=== PATIENT | male | born 1980 | race Hispanic/Latino ===

== ENCOUNTER 2018-06-27 15:30 | Outpatient (CLI) | payer BC ==
--- NOTE | 2018-06-27 17:53 | RAD ---
CHEST TWO VIEWS: 06/27/18 HISTORY: Nonspecific reaction to Janiya interferon. FINDINGS: Normal cardiac silhouette. The lungs and pleural spaces are clear. No pneumothorax or osseous abnorma lities. IMPRESSION: No acute cardiopulmonary process. POS: [facility]
== END 2018-06-27 15:31 | disposition home or self-care (01) ==
LOC: BICRAD 15:30
PROVIDERS: ATTEND Internal Medicine Rheumatology
DX: R76.12 Nonspecific reaction to cell mediated immunity measurement of gamma interferon antigen response without active tuberculosis (principal)
CPT/HCPCS: 71046

== ENCOUNTER 2019-03-07 10:11 | Outpatient (CLI) | payer BC ==
--- NOTE | 2019-03-07 16:02 | MRI ---
MRI RIGHT KNEE 03/07/19 PROVIDED CLINICAL HISTORY: Right knee pain and popping. FINDINGS: Evaluation is limited by patient motion. The anterior cruciate ligament, posterior cruciate ligament, medial collateral ligament and lateral c ollateral ligamentous complex demonstrate an intact MR appearance, as does the extensor mechanism. The medial and lateral menisci demonstrate no definite evidence for tear. No focal articular cartilage defect is apparent. There is a mild-moderate knee joint effusion. No focal concerning regional marrow or muscular signal abnormality apparent. There is signal alteration on fluid sensitive sequences involving the lateral infrapatellar fat, whic h can be seen in settings of patellar tracking abnormality. IMPRESSION: Mild-moderate knee joint effusion. No evidence for internal derangement. POS: OFF
== END 2019-03-07 10:12 | disposition home or self-care (01) ==
LOC: SCSMRI 10:11
PROVIDERS: ATTEND Orthopaedic Surgery
DX: M23.91 Unspecified internal derangement of right knee (principal); M25.461 Effusion, right knee

== ENCOUNTER 2023-06-16 10:47 | Outpatient (CLI) | payer BC | END 2023-06-16 10:48 | disposition home or self-care (01) | LOC: BICRAD 10:47 | PROVIDERS: ATTEND Nurse Practitioner Family | DX: W19.XXXA Unspecified fall, initial encounter (principal) | CPT/HCPCS: 71046 ==